=== PATIENT | female | born 1985 | race Caucasian/White ===

== ENCOUNTER 2017-02-27 09:17 | Day surgery (SDC) | payer OTHER ==
[2017-02-23 09:35] LABS: HEMATOCRIT 42.4 % (36.0-47.0); HEMOGLOBIN 14.6 g/dL (12.0-15.5); HGB HCT DIFFERENCE 1.4; MEAN CORPUSCULAR HEMOGLOBIN 32.6 pg (27.0-33.4); MEAN CORPUSCULAR HGB CONC 34.3 g/dL (32.0-36.0); MEAN CORPUSCULAR VOLUME 95 fl (80-97); RED BLOOD COUNT 4.47 10^6/uL (3.72-5.28); RED CELL DISTRIBUTION WIDTH 12.7 % (11.5-14.0); WHITE BLOOD COUNT 7.3 10^3/uL (4.0-10.5)
[2017-02-23 09:41] LABS: APPEARANCE,URINE CLEAR; BILIRUBIN,URINE NEGATIVE (NEGATIVE); GLUCOSE, URINE NEGATIVE (NEGATIVE); KETONES,URINE NEGATIVE (NEGATIVE); LEUKOCYTE ESTERASE,URINE NEGATIVE (NEGATIVE); NITRITE,URINE NEGATIVE (NEGATIVE); PROTEIN,URINE NEGATIVE (NEGATIVE); URINE SPECIFIC GRAVITY 1.006; UROBILINOGEN,URINE NEGATIVE mg/dL (<2.0)
[2017-02-23 10:12] LABS: ALANINE AMINOTRANSFERASE 41 U/L (9-52); ALBUMIN 4.6 g/dL (3.5-5.0); ALKALINE PHOSPHATASE 77 U/L (38-126); ANION GAP 12 (5-19); ASPARTATE AMINO TRANSFERASE 32 U/L (14-36); BILIRUBIN,DIRECT 0.4 mg/dL (0.0-0.4); BILIRUBIN,TOTAL 0.5 mg/dL (0.2-1.3); BLOOD UREA NITROGEN 15 mg/dL (7-20); CALCIUM 9.7 mg/dL (8.4-10.2); CARBON DIOXIDE 27 mmol/L (22-30); CHLORIDE 102 mmol/L (98-107); CREATININE RESULT 0.68 mg/dL (0.52-1.25); GLUCOSE 78 mg/dL (75-110); POTASSIUM 4.9 mmol/L (3.6-5.0); SODIUM 141.2 mmol/L (137-145); TOTAL PROTEIN 7.2 g/dL (6.3-8.2)
[~2017-02-27 09:17] MED LIST: CEFAZOLIN 2 GM/D5W RTU 2 GM/50 ML RTUPB IV PRN; DOXYCYCLINE HYCLATE 100 MG TABLET PO PRN; GABAPENTIN 400 MG CAPSULE PO PRN; LIDOCAINE 0.5% INJ-PF (5 MG/ML) 50 ML SDV SUBCUT PRN; SCOPOLAMINE HYDROBROMIDE 1.5 MG PATCH.TD72 TD PRN
[2017-02-27] MEDS ORDERED: SUCCINYLCHOLINE CHLORIDE INJ 200 MG/10 ML VIAL ONE (11:55)
[2017-02-27] MEDS ORDERED: DEXAMETHASONE SOD PHOSPHATE INJ 4 MG/1 ML VIAL ONE (11:55)
[2017-02-27] MEDS ORDERED: ONDANSETRON HCL INJ/PF 4 MG/2 ML SDV ONE (11:55)
[2017-02-27] MEDS ORDERED: ROCURONIUM BROMIDE INJ 50 MG/5 ML VIAL IV ONE (11:55)
[2017-02-27] MEDS ORDERED: NEOSTIGMINE METHYLSULFATE 10 MG/10 ML VIAL ONE (11:55)
[2017-02-27] MEDS ORDERED: KETOROLAC TROMETHAMINE 60 MG/2 ML SDV ONE (11:55)
[2017-02-27] MEDS ORDERED: GLYCOPYRROLATE INJ 0.4 MG/2 ML VIAL ONE (11:55)
[2017-02-27] MEDS ORDERED: MIDAZOLAM 2 MG/2 ML INJ ONE (13:58)
[2017-02-27] MEDS ORDERED: FENTANYL CITRATE INJ/PF 250 MCG/5 ML AMPULE ONE (13:58)
[2017-02-27] MEDS ORDERED: PROPOFOL INJ 200 MG/20 ML VIAL IV ONE (13:58)
[2017-02-27] MEDS ORDERED: ACETAMINOPHEN 100 ML IV ONE (13:58)
[2017-02-27] MEDS ORDERED: BUPIVACAINE HCL 0.25 % INJ/PF (2.5 MG/1 ML) 30 ML VIAL ONE (14:03)
[2017-02-27] MEDS ORDERED: METHYLENE BLUE 50 MG/10 ML AMPULE ONE (14:03)
[2017-02-27] MEDS: MEPERIDINE HCL/PF INJ 25 MG/1 ML DISP.SYRIN ONE ×2 (15:27→15:32)
[2017-02-27] MEDS ORDERED: FENTANYL CITRATE INJ/PF 100 MCG/2 ML AMPUL IV PRN ×3 (15:31)
[2017-02-27] MEDS ORDERED: OXYCODONE-ACETAMINOPHEN 5-325 MG TABLET PO PRN ×3 (15:31→15:36)
[2017-02-27] MEDS ORDERED: DIPHENHYDRAMINE HCL 50 MG/ML VIAL IV PRN (15:31)
[2017-02-27] MEDS ORDERED: PROMETHAZINE HCL INJ 25 MG/1 ML VIAL IV PRN ×2 (15:31)
[2017-02-27] MEDS ORDERED: MEPERIDINE HCL/PF INJ 25 MG/1 ML DISP.SYRIN IV PRN (15:31)
[2017-02-27] MEDS ORDERED: MORPHINE SULFATE 10 MG/ML INJ IV PRN (15:31)
[2017-02-27] MEDS ORDERED: ONDANSETRON HCL INJ/PF 4 MG/2 ML SDV IV PRN (15:36)
--- NOTE | 2017-02-27 16:00 | PDOC DISCHARGE SUMMARY ---
Discharge Summary (SDC) - Discharge Final Diagnosis: Infertility Date of Surgery: 02/27/17 Discharge Date: 02/27/17 Condition: Good Forms: Post Operative Treatment or Instructions: Diagnostic laparoscopy with chromotubation, no filling of right fallopian tube with dye. Diagnostic hysteroscopy, normal shaped cavity, but no visible tubal ostea Referrals: ASHLEY GRANADOS MD [NO LOCAL MD] - (Please call [facility] at [phone] to schedule follow up and with any questions you may have. ) Discharge Diet: As Tolerated Respiratory Treatments at Home: Deep Breathing/Coughing Discharge Activity: Activity As Tolerated, Balance Activity w/Rest Report the Following to Your Physician Immediately: Vomiting, Increase in Pain, Fever over 101 Degrees, Drainage-Foul Smelling, Increased Vaginal Bleed
[2017-02-27 17:31] VITALS: BP 120/83
--- NOTE | 2017-03-01 21:27 | OPERATIVE REPORT E ---
Operative Report NAME: YANDEL BARRERA : 1985 AGE: 31Y DATE OF SURGERY: 02/27/2017 ROOM: PREOPERATIVE DIAGNOSIS: INFERTILITY AND HISTORY OF LEFT SALPINGECTOMY. POSTOPERATIVE DIAGNOSIS: INFERTILITY AND HISTORY OF LEFT SALPINGECTOMY. OPERATION: Diagnostic laparoscopy with chromopertubation and diagnostic hysteroscopy. SURGEON: ASHLEY GRANADOS M.D. PURCHASING ADMINISTRATOR: Dr. Gianna Watkins ANESTHESIA: General endotracheal. COMPLICATIONS: None. ESTIMATED BLOOD LOSS: 50 mL. URINE OUTPUT: Clear at the end of the procedure. SPECIMENS: None. FINDINGS: The left fallopian tube was surgically removed as expected. The right fallopian tube appeared normal but did not fill at all proximal to distal and *------* ends looked normal. There was no scarring or adhesive disease around the tube or the ovary. There was no hydrosalpinx. There were multiple sticky type adhesions stretching from the liver to the interior abdominal wall and thoracic surface of the peritoneum suggestive of Qqdh-Lsmf-Ykabhy Syndrome. On hysteroscopy, findings were normal shaped uterine cavity with minimal visualization of the former left tubal ostia and no visualization of the right tubal ostia with no apparent structural impediments. No polyps or scar bands or fibroids visualized whatsoever. INDICATIONS: The risks, benefits, and alternatives of the procedures were discussed with the patient including but not limited to infection, allergic reaction, scar, severe blood loss, loss of function of organs, injury to the bowel, bladders, ureters, urinary bladder and surrounding organs, risk for decreased fertility, loss of the uterus or fallopian tube, or the need for additional surgery or surgery that might affect her ability to become or carry a to full term, possible need for laparotomy to complete surgery and/or repair, the possible need for robotic assisted tubal surgery if fimbrioplasty was indicated. OPERATIVE PROCEDURE: The patient was taken to the operating room where general endotracheal anesthesia was undertaken and found to be adequate. She was prepped and draped in the dorsal lithotomy position and placed in adjustable Sarkis stirrups. At this time a speculum was placed in the vagina. The cervix was identified and an National uterine manipulator was placed as well as a single-tooth tenaculum to facilitate any uterine manipulation and dilute methylene blue solution and tubing were hooked up to the National manipulator for the chromopertubation procedure. Attention was then turned to the abdomen which was anesthetized infraumbilically with 0.25% plain Marcaine local anesthetic. After this, a 12-mm skin incision was made near the inferior margin of the umbilicus. A Veress needle was then placed into the abdomen with intraperitoneal placement confirmed with a drop in CO2 pressure of 2, opening pressure to 3 mmHg. The abdomen was insufflated without difficulty to a pressure of 15 mmHg. The Veress was removed and a 12-mm bladeless trocar was placed and immediate visualization with the robotic camera showed atraumatic entry and some of the above-noted findings. A right lower quadrant port, 8-mm in size, was placed following the typical routine of local anesthetic, skin incision and placement of the port under direct visualization. This port was used during the procedure to allow an atraumatic juliocesar to be introduced in the cavity to facilitate visualization of the tube and the uterus throughout the diagnostic laparoscopy. At this time a thorough investigation of the pelvis was performed and then 120 mL of dilute methylene blue was easily pushed through the National cannula into the uterine cavity. Upon inspection from above, there was blue color change to the left half and posterior half of the uterus but no color change was noted near the right cornua nor the proximal right fallopian tube nor any link of the fallopian tube. No dilation of the tube was noted either. There was minimal back flow of the dilute methylene blue solution through the vagina. At this time we stopped infusion of the solution through the cannula, waited approximately 3 seconds to a minute, and continued visual inspection of the pelvis which revealed no changes. At this time an additional 40 mL of fluid was pushed easily with, again, no result of any change to the right tube proximal or distal. At this time the decision was made to perform diagnostic hysteroscopy while my assistant bookkeeper, Dr. Watkins, maintained visualization with the laparoscopic camera and insufflation of the abdomen. I turned my attention to below where a weighted speculum was placed in the vagina. The National catheter was removed and the hysteroscope was used with hydro dilation to be placed through the cervix into the uterine cavity. The cavity was irrigated and drained several times and then refilled with normal saline solution. Visualization of the cavity revealed some blue dye staining to the endometrium. The endometrium seemed appropriate for mid cycle. There were no polyps or uterine fibroids visualized. A small orifice thought to be the former tubal ostia to the left tube was visualized on the right cornua. The cornua was visible in shape but no clear opening to the right fallopian tube was visible after several attempts of visualization. At this time the hysteroscope was removed and all instruments were removed from the vagina. The Monsalve catheter was also removed. Next, the abdomen was desufflated and all instruments and ports were removed from the abdomen. The 12-mm infraumbilical fascia was closed with 0 Vicryl suture. The skin of 12-mm port site for the camera was also closed with 4-0 Monocryl in subcuticular fashion. After both ports were closed with the 4-0 Monocryl in a subcuticular fashion, they were also dressed with Dermabond. At the end of the procedure, the total fluid deficit from the hysteroscopy was noted to be approximately 250 mL of normal saline and approximately 220 mL of dilute methylene blue. Sponge and instrument counts were correct at the end of the procedure and the patient was taken to recovery in stable condition. DICTATING PHYSICIAN: ASHLEY GRANADOS M.D. [id number] PHY#: [id number] ID: [id number] JOB#: [id number] ACCT: [id number] cc:ASHLEY GRANADOS M.D. >
== END 2017-02-27 17:40 | disposition home or self-care (01) ==
LOC: OROUT 09:17
PROVIDERS: ATTEND Obstetrics & Gynecology
PROC: 0UJ84ZZ Inspection of Fallopian Tube, Percutaneous Endoscopic Approach (ICD-10-PCS; 2017-02-27)
PROC: 0UJD8ZZ Inspection of Uterus and Cervix, Via Natural or Artificial Opening Endoscopic (ICD-10-PCS; 2017-02-27)
PROC: 0UJH8ZZ Inspection of Vagina and Cul-de-sac, Via Natural or Artificial Opening Endoscopic (ICD-10-PCS; 2017-02-27)
PROC: 3E0P3KZ Introduction of Other Diagnostic Substance into Female Reproductive, Percutaneous Approach (ICD-10-PCS; principal; 2017-02-27 11:30)
DX: N97.9 Female infertility, unspecified (principal)
CPT/HCPCS: 86900; 86901; 36415; 86850; 85027; 81025; 80053; 81001; 58350; 58555; J2250; J3490; J1100; J1885; J3010; J2175; J0330; J2405; J2704; J0690; J0131; Q9968; 840